=== PATIENT | male | born 1985 | race Caucasian/White ===

== ENCOUNTER 2022-10-19 08:35 | Outpatient (CLI) | payer BC | END 2022-10-19 08:36 | disposition home or self-care (01) | LOC: ULT 08:35 | PROVIDERS: ATTEND Family Medicine | DX: R74.8 Abnormal levels of other serum enzymes (principal); R79.89 Other specified abnormal findings of blood chemistry; K76.0 Fatty (change of) liver, not elsewhere classified; R16.0 Hepatomegaly, not elsewhere classified | CPT/HCPCS: 76700 ==